=== PATIENT | female | born 1980 | race Caucasian/White ===

== ENCOUNTER 2017-01-05 11:37 | Emergency (ER) | payer OTHER ==
[~2017-01-05] VITALS: Ht 162.6 cm; Wt 55.0 kg
[~2017-01-05 11:37] MED LIST: AMBIEN5 M1 PO; CYCLOBENZAPRINE10 MG PO; DITROPAN2.5 MG PO; ELMIRON100 MG PO; ERYTHROMYC1 APPLICAT BOTH EYES; FLEXERIL10 MG PO; KEFLEX500 MG PO; MACROBID100 MG PO; MOTRIN600 MG PO; NAPROSYN500 MG PO; NORCO 5/3251 TABLET PO; NORVIR100 MG PO; OXYTROL1 EACH PO; PERCOCET 5/31 TABLET PO; PRENATAL TABLE1 EAC3 PO; REYATAZ300 MG PO; TRUVADA1 TABLET PO; ULTRAM50 MG PO; ZOFRAN4 MG PO
[2017-01-05 12:34] LABS: ADD MIUA? YES; BILIRUBIN NEGATIVE; BLOOD MODERATE; COLOR YELLOW ((YELLOW)); GLUCOSE (STRIP) NEGATIVE; KETONES NEGATIVE; LEUKOCYTES NEGATIVE; NITRITE NEGATIVE; PROTEIN (STRIP) NEGATIVE; SPECIFIC GRAVITY 1.021 (1.000-1.030); UROBILINOGEN 0.2 MG/DL (0.2-1.0)
[2017-01-05 12:46] LABS: BACTERIA RARE /HPF; EPITHELIAL CELLS 1+ /HPF; MUCUS 1+ /LPF; RED BLOOD CELLS 0-5 /HPF (0-5); UCUL ADDED? NO; WHITE BLOOD CELLS 0-5 /HPF (0-5)
[2017-01-05 14:24] LABS: HEMATOCRIT 39.6 % (36.0-46.0); MCH 29.3 PG (29.0-34.0); MCHC 33.6 G/DL (30.0-36.0); MCV 87.2 FL (83-99); MEAN PLAT.VOLUME 10.8 uM^3 (9.5-12.4); PLATELET COUNT 238 K/uL (156-360); RBC DIS.WIDTH-CV 12.9 % (11.8-14.6); RBC DIS.WIDTH-SD 40.1 % (39-53); RED BLOOD COUNT 4.54 M/uL (3.80-5.20); WHITE BLOOD COUNT 5.6 K/uL (4.1-10.2)
[2017-01-05 14:34] LABS: CHLORIDE 106 mEq/L (99-109); POTASSIUM 4.1 mEq/L (3.7-5.4); SODIUM 141 mEq/L (136-147)
[2017-01-05 14:36] LABS: GLUCOSE 79 mg/dL (70-99)
[2017-01-05] MEDS ORDERED: BACTRIM,SEPT1 TABLET PO (14:36)
[2017-01-05 14:37] LABS: ANION GAP 10 MEQ/L (2-14)
[2017-01-05 14:40] LABS: GFR ESTIMATE (CALCULATED) > 59 mL/min/
[2017-01-05 14:41] LABS: UREA NITROGEN (BUN) 16 mg/dL (9-23)
[2017-01-05 14:47] VITALS: BP 101/59
== END 2017-01-05 14:57 | disposition home or self-care (01) ==
LOC: EME 11:37
PROVIDERS: Physician Assistant
DX: N39.0 Urinary tract infection, site not specified (principal); Z21 Asymptomatic human immunodeficiency virus [HIV] infection status; F17.200 Nicotine dependence, unspecified, uncomplicated
CPT/HCPCS: 80048; 81003; 85027; 87086; 99281; 99285